=== PATIENT | female | born 1995 | race Caucasian/White ===

== ENCOUNTER 2017-01-08 20:41 | Emergency (ER) | payer MEDICAID ==
[~2017-01-08] VITALS: Ht 152.4 cm; Wt 60.0 kg
[~2017-01-08 20:41] MED LIST: AMOX250C17 PO; BUPR1FIL3 PO; BUSP5TAB2 PO; CLON0.1T PO; DIAZ10TA PO; DIAZ2TAB PO; DOCU-30 PO; HYDR-3240; IBUP800T PO; LAMO200T3 PO; LORA-445 PO; MIRT30TA PO; OXYC-302 PO; SERT25TA PO; VENL150C PO
[2017-01-08] MEDS ORDERED: HYDROcodone/APAP 5/325 TABLET ONE (20:44)
[2017-01-08] MEDS ORDERED: HYDROcodone/APAP 5/325 TABLET PO ONE (21:00)
[2017-01-08] MEDS ORDERED: METH40TA3 PO (21:09)
[2017-01-08] MEDS ORDERED: HYDROmorphone 1 MG/ML, 1ML IVPush ONE (22:00)
[2017-01-08] MEDS ORDERED: HYDROmorphone 1 MG/ML, 1ML ONE (22:06)
[2017-01-08 22:22] VITALS: BP 102/51
== END 2017-01-08 22:25 | disposition home or self-care (01) ==
LOC: ED 21:17
DX: S02.2XXA Fracture of nasal bones, initial encounter for closed fracture (principal); S02.32XA Fracture of orbital floor, left side, initial encounter for closed fracture; F32.9 Major depressive disorder, single episode, unspecified; Z88.1 Allergy status to other antibiotic agents; Y04.0XXA Assault by unarmed brawl or fight, initial encounter; Y93.89 Activity, other specified; Y99.8 Other external cause status; Y92.488 Other paved roadways as the place of occurrence of the external cause
CPT/HCPCS: 70486; 96374; 99284; J1170

== ENCOUNTER 2017-01-15 07:03 | Day surgery (SDC) | payer MEDICAID ==
[~2017-01-15] VITALS: Ht 152.4 cm; Wt 59.0 kg
[~2017-01-15 07:03] MED LIST changes: +BACITRACIN OINT 500U/GM, 15 GM ONE; +COCAINE TOPICAL SOLN 4%, 4ML ONE; +LIDOCAINE 1%-EPI 1:100K, 50ML ONE; +METH40TA3 PO; +OXYMETAZOLINE NASAL SPRAY 0.05%, 15ML ONE
[2017-01-15 08:30] LABS: DAU SCREEN DISCLAIMER
[2017-01-15 08:33] VITALS: BP 105/61
[2017-01-15] MEDS ORDERED: LACTATED RINGERS 1,000 ML IV SCH (08:33)
[2017-01-15] MEDS ORDERED: MIDAZOLAM 1 MG/ML, 2ML ONE (08:57)
[2017-01-15] MEDS ORDERED: FENTANYL PF 250 MCG/5ML ONE (08:58)
[2017-01-15 09:06] LABS: HCG UR OBC PASS
[2017-01-15] MEDS ORDERED: ROCURONIUM 10 MG/ML ONE (09:22)
[2017-01-15] MEDS ORDERED: PROPOFOL 10 MG/ML, 20ML ONE (09:22)
[2017-01-15] MEDS ORDERED: GLYCOPYRROLATE 0.2MG/1ML ONE (09:22)
[2017-01-15] MEDS ORDERED: DEXAMETHASONE 4 MG/ML, 5ML ONE (09:22)
[2017-01-15] MEDS ORDERED: SUCCINYLCHOLINE 20 MG/ML, 10ML ONE (09:22)
[2017-01-15] MEDS ORDERED: FENTANYL PF 100 MCG/2ML IV PRN (10:00)
[2017-01-15] MEDS ORDERED: METOCLOPRAMIDE 5 MG/ML, 2ML IV PRN (10:00)
[2017-01-15] MEDS ORDERED: MIDAZOLAM 1 MG/ML, 2ML IV PRN (10:00)
[2017-01-15] MEDS ORDERED: HYDROmorphone 1 MG/ML, 1ML IV PRN (10:00)
[2017-01-15] MEDS ORDERED: OXYcodone 5 MG/5 ML ORAL.SOL UDC PO PRN (10:00)
[2017-01-15] MEDS ORDERED: ACETAMINOPHEN 325 MG TABLET PO PRN (10:00)
[2017-01-15] MEDS ORDERED: LABETALOL 5MG/ML, 20ML IV PRN (10:00)
[2017-01-15] MEDS ORDERED: PROMETHAZINE 25 MG/ML, 1ML IV PRN (10:00)
[2017-01-15] MEDS ORDERED: hydrALAzine 20 MG/ML, 1ML IV PRN (10:00)
[2017-01-15] MEDS ORDERED: MEPERIDINE/PF 25MG/0.5ML IVPush PRN (10:00)
[2017-01-15] MEDS ORDERED: ONDANSETRON 2MG/ML, 2ML IVPush PRN (10:00)
[2017-01-15] MEDS ORDERED: FENTANYL PF 100 MCG/2ML ONE (10:18)
[2017-01-15] MEDS ORDERED: ACETAMINOPHEN 325 MG TABLET ONE (10:18)
[2017-01-15] MEDS ORDERED: ACETAMINOPHEN 650 MG/20.3 ML UDC ONE (10:18)
[2017-01-15] MEDS ORDERED: OXYcodone 5 MG/5 ML ORAL.SOL UDC ONE (10:19)
[2017-01-15] MEDS ORDERED: HYDROmorphone 2 MG/ML, 1ML ONE (10:53)
== END 2017-01-15 16:00 ==
LOC: OUT 07:03
PROVIDERS: ATTEND Otolaryngology Facial Plastic Surgery
DX: S02.2XXA Fracture of nasal bones, initial encounter for closed fracture (principal); Y09 Assault by unspecified means; Y93.9 Activity, unspecified; Y92.9 Unspecified place or not applicable; Y99.9 Unspecified external cause status; F32.9 Major depressive disorder, single episode, unspecified; G43.909 Migraine, unspecified, not intractable, without status migrainosus; F17.210 Nicotine dependence, cigarettes, uncomplicated; Z72.89 Other problems related to lifestyle
CPT/HCPCS: 21320; 80307; 81025; 93005; J0330; J1100; J1170; J2250; J2704; J3010; J7120; J3490

== ENCOUNTER 2018-04-15 20:58 | Emergency (ER) | payer MEDICAID ==
[~2018-04-15] VITALS: Ht 152.4 cm; Wt 73.5 kg
[~2018-04-15 20:58] MED LIST changes: -BACITRACIN OINT 500U/GM, 15 GM ONE; -COCAINE TOPICAL SOLN 4%, 4ML ONE; +DOCU-131 PO; -DOCU-30 PO; +IBUP-1223 PO; -IBUP800T PO; -LIDOCAINE 1%-EPI 1:100K, 50ML ONE; -OXYMETAZOLINE NASAL SPRAY 0.05%, 15ML ONE
[2018-04-15 20:59] VITALS: BP 120/86
[2018-04-15] MEDS ORDERED: CHLORDIAZEPOXIDE 10 MG CAPSULE ONE (21:30)
[2018-04-15] MEDS ORDERED: CHLORDIAZEPOXIDE 5 MG CAPSULE PO PRN (21:30)
[2018-04-15] MEDS ORDERED: CHLORDIAZEPOXIDE 10 MG CAPSULE PO PRN (22:00)
== END 2018-04-15 21:45 | disposition home or self-care (01) ==
LOC: ED 21:20
DX: F41.1 Generalized anxiety disorder (principal); F13.239 Sedative, hypnotic or anxiolytic dependence with withdrawal, unspecified; F31.9 Bipolar disorder, unspecified; R56.9 Unspecified convulsions; Z98.51 Tubal ligation status; Z76.0 Encounter for issue of repeat prescription; Z72.89 Other problems related to lifestyle
CPT/HCPCS: 99283